=== PATIENT | male | born 1950 | race African-American/Black ===

== ENCOUNTER → 2019-07-14 | Outpatient (CLI) | payer MEDICARE ==
[~2019-07-14] VITALS: Ht 162.6 cm; Wt 81.6 kg
--- NOTE | 2019-07-14 13:28 | RAD ---
MR#: [id number] Date of Study: 07/14/2019 Ordering Physician: KONSTANTIN ROBIN, Referring Physician: ANDREW MCNAMARA Tech: RT Gera (R) (N) APPROVED REPORT Test Type: Exercise Stress Nurse/Tech: Hanna Major R.N. Test Indications: cad Cardiac History: cad, stents, Medications: see ehr Medical History: see ehr Resting ECG: sr Resting Heart Rate: 51 bpm Resting Blood Pressure: 165/75mmHg Pretest Chest Pain: No chest pain Nurse/Tech Notes lungs cta. heart tones regular Consent: The procedure was explained to the patient in lay terms. Informed consent was witnessed. Jasbir eout was entered into [facility]. History and Stress Test performed by RT Gera (R) (N) Stress Symptoms No chest pain or symptoms. POST EXERCISE Reason for Termination: Reached target heart rate Target HR: Yes Max HR: 135 bpm 88% of Maximum Predicted HR: 154 bpm Exercise duration: 6:32 min:sec, 2 Stage Exercise capacity: 7.0METs Max Blood Pressure: 196/74mmHg Blood Pressure response to exercise: Normal blood pressure response during stress. Heart Rate response to exercise: normal Chest Pain: No. Arrhythmia: Yes. pac and several pvcs noted INTERPRETATION Stress EKG Conclusion: The resting EKG shows a sinus rhythm. The stress EKG shows no significant changes from baseline. There were no significant arrhythmias with exertion. No EKG evidence of exercise-induced ischemia. Imaging Protocol IMAGE PROTOCOL: Rest Tc-99m/stress Tc-99m 1 day Rest: Stress: Viability: Radiopharm.Tc99m GzvwcgessVm87p Sestamibi [id number] 11mCi Duration 15min. 15min. Img Date 07/14/2019 07/14/2019 Inj-Img Ahiw49hms. 60min. Rest Admin Site:IV - Left AntecubitalAdministrator:RT Gera (R)(N) Stress Admin Site: IV - Left AntecubitalAdministrator: RT Gera (R)(N) STRESS DATA End Diast. Vol.78.0mlLVEDV index BSA41.0ml End Syst. Vol.19.0mlLVESV index BSA10.0ml Myocardial Mywm883.0gEject. Ometcpdb63.0% Stress Scores Regional WT2.00Summed WT10.00 Regional WM0.00Summed WM0.00 LV Perfusion The stress scans showed no significant defects. The rest scans showed no significant defects. Nuclear imaging shows no reversible ischemia or infarct. Wall Motion Left ventricular systolic function is normal with no regional wall motion abnormalities and an ejecti on fraction of greater than 70%. LV Perf. Quant 17 Seg. SSS0.00 17 Seg. SRS0.00 17 Seg. SDS0.00 Stress Defect Extent (% LAD)0.00Rest Defect Extent (% LAD)0.00Rev. Defect Extent (% LAD)0.00 Stress Defect Extent (% LCX) 0.00Rest Defect Extent (% LCX)0.00Rev. Defect Extent (% LCX)0.00 Stress Defect Extent (% RCA)0.00Rest Defect Extent (% RCA)0.00Rev. Defect Extent (% RCA)0.00 Stress Defect Extent (% TEJ)0.00Rest Defect Extent (% TEJ)0.00Rev. Defect Extent (% TEJ)0.00 Conclusion 1. Good exercise tolerance. 2. No chest pain with exertion. 3. No EKG evidence of stressed induced ischemia. 4. Nuclear imaging shows no reversible ischemia or infarct. 5. Normal left ventricular systolic function with an ejection fraction of greater than 70%. 6. Low risk treadmill nuclear stress test. Signed by : Konstantin Robin MD Electronically Approved : 07/14/2019 13:27:48
== END | disposition home or self-care (01) ==
LOC: NM 08:47
PROVIDERS: ATTEND Internal Medicine Cardiovascular Disease
DX: I25.10 Atherosclerotic heart disease of native coronary artery without angina pectoris (principal); Z95.5 Presence of coronary angioplasty implant and graft
CPT/HCPCS: 78452; 93017; A9500

== ENCOUNTER → 2020-07-06 | Outpatient (CLI) | payer OTHER, MEDICARE ==
--- NOTE | 2020-07-06 13:19 | RAD ---
Chest, PA and Lateral: Technique: PA and lateral views of the chest were obtained. History: Chest pain. Comparison: None. Findings: The heart and pulmonary vasculature appear within normal limits. The lungs are clear. The pleural ma rgins are clear. Impression: No acute chest process is seen. Electronically signed by: Trace Heredia MD (07/06/2020 1:16 PM) [id number]
== END ==
LOC: RAD 12:08
PROVIDERS: ATTEND Internal Medicine Cardiovascular Disease
DX: R07.9 Chest pain, unspecified (principal)
CPT/HCPCS: 71046